=== PATIENT | male | born 1970 | race Two or more races ===

== ENCOUNTER 2019-03-07 12:28 | Emergency (ER) | payer OTHER ==
[~2019-03-07] VITALS: Ht 165.1 cm; Wt 88.5 kg
[2019-03-07 12:35] VITALS: BP 142/88
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
[2019-03-07] MEDS ORDERED: Methocarbamol 750mg tab ORAL ONE (13:00)
[2019-03-07] MEDS ORDERED: IBUPROFEN600 MG ORAL (13:16)
[2019-03-07] MEDS ORDERED: LIDODERM700 M1 TOPIC (13:16)
[2019-03-07] MEDS ORDERED: ROBAXIN-750750 MG PO (13:16)
--- NOTE | 2019-03-07 13:27 | NUR ---
ER DISCHARGE NOTE: Patient is cleared to be discharged per ERMD. Patient given D/C instruction and prescription. Patient verbalized understanding of it. Ambulated out with steady gait with all his belongings.
[2019-03-07 13:30] VITALS: BP 142/88
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
== END 2019-03-07 14:28 | disposition home or self-care (01) ==
LOC: EMR 13:26
DX: M54.2 Cervicalgia (principal); M54.5 Low back pain; V43.52XA Car driver injured in collision with other type car in traffic accident, initial encounter; Y92.410 Unspecified street and highway as the place of occurrence of the external cause
CPT/HCPCS: 99282